=== PATIENT | male | born 1950 | race Caucasian/White ===

== ENCOUNTER 2017-05-31 09:09 | Inpatient (IN) | payer MEDICARE ==
[~2017-05-31 09:09] MED LIST: ALPR.25 PO; ASPI-183 PO; ASPI-516 CHEW; CIAL5TAB PO; CITA20TA4 PO; CLIN150C14 PO; DOXY100T PO; GEMF600T PO; HYDR-3533 PO; LEVEMIR SQ; LIPI20TA PO; LISI-363 PO; LISI-515 PO; METF1000 PO; MUPI2%T TOPICAL; SULF1TAB47 PO
[2017-05-31] MEDS ORDERED: SODIUM CHLOR 0.9% 1000 ML INJ 1,000 ML IV SCH (09:18)
[2017-05-31 09:22] VITALS: BP 98/56; PULSE 86; RESP 18; TEMP 97.9; O2SAT 88; O2SAT 97
[2017-05-31] MEDS ORDERED: ONDANSETRON HCL 4 MG/2 ML VIAL IVP ONE (09:30)
[2017-05-31] MEDS ORDERED: SODIUM CHLORIDE 0.9% FLUSH 10 ML FLUSH IV FLUSH PRN (09:30)
[2017-05-31 09:48] LABS: AUTOMATED NEUTROPHIL # 8.4 TH/MM3 (1.8-7.7); BASOPHIL # 0.1 TH/MM3 (0-0.2); BASOPHIL % 0.8 % (0.0-2.0); EOSINOPHIL # 0.3 TH/MM3 (0-0.4); EOSINOPHIL % 2.4 % (0.0-4.0); HEMOGLOBIN 16.6 GM/DL (13.0-17.0); LYMPHOCYTE # 2.5 TH/MM3 (1.0-4.8); MEAN CORPUSCULAR HEMOGLOBIN 33.5 PG (27.0-34.0); MEAN CORPUSCULAR HGB CONC 33.9 % (32.0-36.0); MEAN PLATELET VOLUME 10.1 FL (7.0-11.0); MONO % 13.3 % (0.0-8.0); MONOCYTE # 1.7 TH/MM3 (0-0.9); NEUT % 64.5 % (16.0-70.0); PLATELET COUNT 217 TH/MM3 (150-450); RED BLOOD COUNT 4.95 MIL/MM3 (4.50-5.90); RED CELL DISTRIBUTION WIDTH 13.4 % (11.6-17.2)
[2017-05-31] MEDS ORDERED: FLEE5TAB PO (10:28)
[2017-05-31 10:31] LABS: ALBUMIN 3.8 GM/DL (3.4-5.0); ALKALINE PHOSPHATASE 69 U/L (45-117); ALT (GPT) 28 U/L (12-78); AST (GOT) 29 U/L (15-37); BICARBONATE 28.4 MEQ/L (21.0-32.0); BLOOD UREA NITROGEN 82 MG/DL (7-18); CALCIUM 11.9 MG/DL (8.5-10.1); CALCIUM-PROTEIN CORRECTED 11.5 MG/DL (8.5-10.1); CHLORIDE 96 MEQ/L (98-107); CREATININE 5.11 MG/DL (0.60-1.30); GLOMERULAR FILTRATION RATE 11 ML/MIN (>89); GLUCOSE,RANDOM 330 MG/DL (74-106); LIPASE 1238 U/L (73-393); SODIUM (NA) 137 MEQ/L (136-145); TOTAL BILIRUBIN ADULT 0.7 MG/DL (0.2-1.0); TOTAL PROTEIN 7.8 GM/DL (6.4-8.2); TROPONIN I LESS THAN 0.02 NG/ML (0.02-0.05)
[2017-05-31] MEDS ORDERED: ALPR1TAB3 PO (11:09)
[2017-05-31] MEDS ORDERED: LISI-515 PO (11:09)
[2017-05-31] MEDS ORDERED: CLON0.1T PO (11:09)
[2017-05-31] MEDS ORDERED: GABA100C4 PO (11:09)
[2017-05-31] MEDS ORDERED: VITA250C3 CHEW (11:09)
[2017-05-31] MEDS ORDERED: ESCI10TA PO (11:09)
[2017-05-31] MEDS ORDERED: ALBI1INJ2 SQ (11:09)
[2017-05-31] MEDS ORDERED: TRAM50TA PO (11:09)
[2017-05-31] MEDS ORDERED: INSU1INJ14 SQ (11:09)
--- NOTE | 2017-05-31 11:15 | RADRPT ---
EXAM DATE/TIME: 05/31/2017 10:21 [facility] COMPARISON: No previous studies available for comparison. EXTERNAL COMPARISON : [facility], CTA Abdomen and pelvis, November 04, 2016also 05/21/16 and 01/15/2016. CT Aorta with r enoff 07/12/2015. CT Abdomen and pelvis with contrast 06/07/2015 INDICATIONS : Nausea and vomiting. MEDICAL HISTORY : Diabetic. HTN. AAA. Colon polyps. SURGICAL HISTORY : Tubal ligation. Right endarterectomy. Hernia repair. Colon resection. ENCOUNTER: Initial ACUITY: 1 week PAIN SCORE: 0/10 LOCATION: Right upper quadrant MEASUREMENTS: LIVER: 17.2 cm length COMMON DUCT: Non-visualized RIGHT KIDNEY: 12.2A x 5.8 x 8.0 cm FINDINGS: LIVER: Much of the liver is obscured by bowel gas. The liver is diffusely echogenic. There is a suggestion o f mitral lobulation to the contour. No gross mass or intrahepatic ductal dilatation observed on these limited images. Hepatopedal flow within the portal vein. COMMON DUCT: No intraluminal mass or stone visualized. GALLBLADDER: Contains no stones, demonstrates no wall thickening or pericholecystic fluid. PANCREAS: The visualized portions are within normal limits. RIGHT KIDNEY: No evidence of hydronephrosis, stone, or mass. CONCLUSION: 1. Study limited by bowel gas. 2. Hepatic steatosis. 3. Questionable cirrhosis. Richard Powell Jr., MD on May 31, 2017 at 11:10 Board Certified Radiologist. This report was verified electronically.
--- NOTE | 2017-05-31 11:41 | PD ---
HPI Chief Complaint: Cardiac Complaint Time Seen by Provider: 09:18 Travel History International Travel<30 days: No Contact w/Intl Traveler<30days: No Traveled to known affect area: No History of Present Illness HPI This is a 67-year-old male who presents to the emergency department with nausea and vomiting, constant severe, associated with generalized weakness with some chest discomfort in the middle of his sternum that started yesterday. He denies any fevers or chills. He says intermittently he has also had some pain in his right upper abdomen. He denies any diarrhea. He has never had symptoms like this before. He went to Dr. Bal office today who called EMS and told him to be brought to the emergency department. The patient denies any alcohol use. PFSH Past Medical History Hx Anticoagulant Therapy: Yes (asa) Depression: Yes Cancer: Yes (COLON) Cardiovascular Problems: Yes High Cholesterol: Yes Diabetes: Yes Patient Takes Glucophage: No Diminished Hearing: No Hypertension: Yes Inguinal Hernia: Yes (WITH REPAIR) Integumentary: Yes (HX OF MRSA WITH MULTIPLE WOUND INFECTIONS) Past Surgical History Abdominal Surgery: Yes (COLECTOMY WITH RESECTION; HERNIA REPAIR) Other Surgery: Yes (right endartectomy) Social History Alcohol Use: Yes (SOCIALLY) Tobacco Use: No Substance Use: No Allergies-Medications (Allergen,Severity, Reaction): Coded Allergies: No Known Allergies (Verified , 04/02/16) Reported Meds & Prescriptions Reported Meds & Active Scripts Active Reported Lisinopril 20 Mg Tab 20 Mg PO DAILY Tanzeum 4-Pack Inj (Albiglutide) 50 Mg Pfpen 50 Mg SQ Q7D Vitamin C (Ascorbic Acid) 250 Mg Chew 500 Mg CHEW DAILY Tramadol (Tramadol HCl) 50 Mg Tab 50 Mg PO Q6H PRN Tresiba Flextouch Pen Inj (Insulin Degludec Inj) 300 unit/3 ML Pen 80 Units SQ DAILY Gabapentin 100 Mg Cap 100 Mg PO BID Escitalopram (Escitalopram Oxalate) 10 Mg Tab 10 Mg PO DAILY Clonidine (Clonidine HCl) 0.1 Mg Tab 0.1 Mg PO PRN Alprazolam 1 Mg Tab 1 Mg PO BID PRN Bisacodyl EC (Bisacodyl) 5 Mg Tabec 5 Mg PO DAILY PRN Aspirin 81 Mg Chew 81 Mg CHEW DAILY Aspirin 325 Mg Tab 81 Mg PO DAILY Gemfibrozil 600 Mg Tab 600 Mg PO DAILY Take 30 minutes prior to breakfast and dinner. Metformin (Metformin HCl) 1,000 Mg Tab 1,000 Mg PO BIDPC With meals Lipitor (Atorvastatin Calcium) 20 Mg Tab 80 Mg PO HS Review of Systems Except as stated in HPI: all other systems reviewed are Neg Physical Exam Narrative GENERAL:Well appearing, no acute distress SKIN: Dry with skin tenting HEAD: Atraumatic. Normocephalic. EYES: Pupils equal and round. No injection or drainage. ENT: Dry mucous membranes. NECK: Trachea midline. CARDIOVASCULAR: Regular rate and rhythm. No murmur appreciated. RESPIRATORY: Clear to auscultation. Breath sounds equal bilaterally. GASTROINTESTINAL: Abdomen soft, mildly tender to palpation in the right upper quadrant with no rebound or guarding. MUSCULOSKELETAL: No obvious deformities. Moving all extremities. NEURO: No dysarthria or aphasia. No upper or lower extremity drift. No upper extremity ataxia. Visual baron intact. PSYCHIATRIC: Appropriate mood and affect; insight and judgment normal. Data Data Last Documented VS Vital Signs Date Time Temp Pulse Resp B/P (MAP) Pulse Ox O2 Delivery O2 Flow Rate FiO2 05/31/17 09:32 98 Nasal Cannula 3.00 05/31/17 09:24 86 05/31/17 09:22 97.9 18 98/56 (70) Orders Orders Complete Blood Count With Diff (05/31/17 09:18) Comprehensive Metabolic Panel (05/31/17 09:18) Lipase (05/31/17 09:18) Urinalysis - C+S If Indicated (05/31/17 09:18) Iv Access Insert/Monitor (05/31/17 09:18) Ecg Monitoring (05/31/17 09:18) Oximetry (05/31/17 09:18) Ondansetron Inj (Zofran Inj) (05/31/17 09:30) Sodium Chlor 0.9% 1000 Ml Inj (Ns 1000 M (05/31/17 09:18) Sodium Chloride 0.9% Flush (Ns Flush) (05/31/17 09:30) Troponin I (05/31/17 09:18) Us Abdomen Gallbladder (05/31/17 ) Lactic Acid (05/31/17 11:25) Ct Abd/Pel W/O Iv Contrast (05/31/17 ) Electrocardiogram (05/31/17 09:15) Chest, Single Ap (05/31/17 ) Labs Laboratory Tests Test 05/31/17 09:20 05/31/17 11:30 White Blood Count 13.0 TH/MM3 Red Blood Count 4.95 MIL/MM3 Hemoglobin 16.6 GM/DL Hematocrit 49.0 % Mean Corpuscular Volume 99.0 FL Mean Corpuscular Hemoglobin 33.5 PG Mean Corpuscular Hemoglobin Concent 33.9 % Red Cell Distribution Width 13.4 % Platelet Count 217 TH/MM3 Mean Platelet Volume 10.1 FL Neutrophils (%) (Auto) 64.5 % Lymphocytes (%) (Auto) 19.0 % Monocytes (%) (Auto) 13.3 % Eosinophils (%) (Auto) 2.4 % Basophils (%) (Auto) 0.8 % Neutrophils # (Auto) 8.4 TH/MM3 Lymphocytes # (Auto) 2.5 TH/MM3 Monocytes # (Auto) 1.7 TH/MM3 Eosinophils # (Auto) 0.3 TH/MM3 Basophils # (Auto) 0.1 TH/MM3 CBC Comment DIFF FINAL Differential Comment Blood Urea Nitrogen 82 MG/DL Creatinine 5.11 MG/DL Random Glucose 330 MG/DL Total Protein 7.8 GM/DL Albumin 3.8 GM/DL Calcium Level 11.9 MG/DL Alkaline Phosphatase 69 U/L Aspartate Amino Transf (AST/SGOT) 29 U/L Alanine Aminotransferase (ALT/SGPT) 28 U/L Total Bilirubin 0.7 MG/DL Sodium Level 137 MEQ/L Potassium Level 3.8 MEQ/L Chloride Level 96 MEQ/L Carbon Dioxide Level 28.4 MEQ/L Anion Gap 13 MEQ/L Estimat Glomerular Filtration Rate 11 ML/MIN Protein Corrected Calcium 11.5 MG/DL Troponin I LESS THAN 0.02 NG/ML Lipase 1238 U/L MDM Medical Decision Making Medical Screen Exam Complete: Yes Emergency Medical Condition: Yes Interpretation(s) Afebrile, no tachycardia, mild hypotension, hypoxia on room air Leukocytosis of 13 Renal insufficiency Normal potassium Hypercalcemia Lipase is 1238 US: no acute process Differential Diagnosis Gastritis, pancreatitis, cholelithiasis, cholecystitis, myocardial infarction, dehydration Narrative Course This is a 67-year-old male who presents to the emergency department with vomiting and generalized malaise. He was placed on a monitor and an IV was established. Labs are obtained which demonstrate acute renal failure, lipase of 1238 consistent with acute pancreatitis and marked hypercalcemia. Patient has a mild leukocytosis. He is afebrile and on exam looks nontoxic. I doubt this is necrotizing pancreatitis but I did add a lactic acid and a CT abdomen pelvis. Patient was started on IV hydration and antiemetics. Ultrasound of the gallbladder was unremarkable. Patient requires admission. Hypercalcemia may be the etiology of his acute pancreatitis. Diagnosis Primary Impression: Acute pancreatitis Qualified Codes: K85.80 - Other acute pancreatitis without necrosis or infection Additional Impression: Hypercalcemia Admitting Information Admitting Physician Requests: Admit Sara Yeboah MD May 31, 2017 11:41
[2017-05-31 11:43] LABS: BILIRUBIN, URINE NEG (NEG); BLOOD, URINE NEG (NEG); GLUCOSE,URINE 1000 mg/dL (NEG); HYALINE CAST, URINE 14 /lpf (RARE); KETONE, URINE NEG (NEG); MUCUS URINE FEW /lpf (OCC); NITRITE,URINE NEG (NEG); PH, URINE 5.5 (5.0-8.5); SQUAMOUS EPITHELIAL CELL URINE <1 /hpf (0-5); URINE COLOR YELLOW (YELLW/STRAW); URINE LEUKOCYTE ESTERASE NEG (NEG)
[2017-05-31] MEDS ORDERED: ONDANSETRON HCL 4 MG/2 ML VIAL IV PUSH PRN (11:45)
[2017-05-31 12:00] VITALS: BP 94/69; PULSE 93; RESP 20; O2SAT 97
--- NOTE | 2017-05-31 12:02 | RADRPT ---
EXAM DATE/TIME: 05/31/2017 11:42 [facility] COMPARISON: No previous studies available for comparison. INDICATIONS : Abdominal pain, vomiting ORAL CONTRAST: No oral contrast ingested. RADIATION DOSE: 16.33 CTDIvol (mGy) MEDICAL HISTORY : Cardiovascular disease. Hypertension. Carcinoma, colon.Diabetes SURGICAL HISTORY : Inguinal hernia repair. Colon resection. ENCOUNTER: Initial ACUITY: 2 weeks PAIN SCALE: 5/10 LOCATION: Abdomen TECHNIQUE: Volumetric scanning of the abdomen and pelvis was performed. Using automated exposure control and ad justment of the mA and/or kV according to patient size, radiation dose was kept as low as reasonably achievable to obtain optimal diagnostic quality images. DICOM format image data is available electro nically for review and comparison. FINDINGS: LOWER LUNGS: Interstitial prominence involving the inferior portion of the lingula. No intra-alveolar infiltrates or effusions. Pronounced coronary artery atherosclerotic calcifications. LIVER: The liver is diffusely low in attenuation. No mass or ductal dilatation. No lobulation to the contour observed. The gallbladder is unremarkable. SPLEEN: Normal size without lesion. PANCREAS: Within normal limits. KIDNEYS: Normal in size and shape. There is no mass, stone, or hydronephrosis. ADRENAL GLANDS: Within normal limits. VASCULAR: Diffuse calcified atherosclerotic plaque throughout the aorta and inflow vessels. Fusiform dilatation of the infrarenal aorta reaching a maximum diameter of 4.9 x 4.4 cm. BOWEL/MESENTERY: The stomach, small bowel, and colon demonstrate no acute abnormality. There is no free intraperitone al air or fluid. A few scattered diverticuli without acute inflammation. ABDOMINAL WALL: There is thickening and possible mesh involving the intra-abdominal wall above the level of the umbil icus. No recurrent hernia observed. RETROPERITONEUM: There is no lymphadenopathy. BLADDER: No wall thickening or mass. REPRODUCTIVE: Within normal limits. INGUINAL: There is no lymphadenopathy or hernia. MUSCULOSKELETAL: Within normal limits for patient age. CONCLUSION: 1. No acute abnormality to explain the patient's pain. 2. 4.9 x 4.4 cm AAA. 3. Colonic diverticulosis. 4. Hepatic steatosis without appreciable cirrhosis. Richard Powell Jr., MD on May 31, 2017 at 11:54 Board Certified Radiologist. This report was verified electronically.
--- NOTE | 2017-05-31 12:32 | RADRPT ---
EXAM DATE/TIME: 05/31/2017 11:54 [facility] COMPARISON: No previous studies available for comparison. INDICATIONS : Vomiting, constipation MEDICAL HISTORY : None. SURGICAL HISTORY : None. ENCOUNTER: Initial ACUITY: 3 weeks PAIN SCORE: 0/10 LOCATION: Bilateral chest FINDINGS: A single view of the chest demonstrates the lungs to be symmetrically aerated without evidence of mas s, infiltrate or effusion. The cardiomediastinal contours are unremarkable. Osseous structures are intact. CONCLUSION: Normal examination. Richard Powell Jr., MD on May 31, 2017 at 12:26 Board Certified Radiologist. This report was verified electronically.
[2017-05-31 13:49] VITALS: BP 137/67; PULSE 86; RESP 18; O2SAT 94
[2017-05-31] MEDS: SODIUM CHLOR 0.9% 1000 ML INJ 1,000 ML IV SCH ×3 (13:49→22:45)
--- NOTE | 2017-05-31 17:24 | HHI.HP ---
HPI Service [facility] Hospitalists Primary Care Physician Landen Bal MD, PhD Admission Diagnosis rakesh/pancreatitis Chief Complaint: n/v Travel History International Travel<30 Days: No Contact w/Intl Traveler <30 Da: No Traveled to Known Affected Are: No History of Present Illness Pt is dm2, htn, hypercalcemia, who presents with n/v poor po intake for past 3 weeks. He and say persistent nausea and unable to hold down any food. some upper abdomen lower cp but no radiation to back. no diarrhia. has had some chills but no fever. No new medications. Brought to ED and found to have rakesh and possible pancreatitis. Review of Systems Other n/v poor po intake Past Family Social History Past Medical History dm2 hypercalcemia BRENDA. AAA endarterectomy right femoral. right adrenal mass erectile dysfunction hyperlipidemia depression vit d def. colonic polyps fatty liver gerd colon ca colon resection right hemicolectomy umbilical hernia Reported Medications Lisinopril 20 Mg Tab 20 Mg PO DAILY Tanzeum 4-Pack Inj (Albiglutide) 50 Mg Pfpen 50 Mg SQ Q7D Vitamin C (Ascorbic Acid) 250 Mg Chew 500 Mg CHEW DAILY Tramadol (Tramadol HCl) 50 Mg Tab 50 Mg PO Q6H PRN Tresiba Flextouch Pen Inj (Insulin Degludec Inj) 300 unit/3 ML Pen 80 Units SQ DAILY Gabapentin 100 Mg Cap 100 Mg PO BID Escitalopram (Escitalopram Oxalate) 10 Mg Tab 10 Mg PO DAILY Clonidine (Clonidine HCl) 0.1 Mg Tab 0.1 Mg PO PRN Alprazolam 1 Mg Tab 1 Mg PO BID PRN Bisacodyl EC (Bisacodyl) 5 Mg Tabec 5 Mg PO DAILY PRN Aspirin 81 Mg Chew 81 Mg CHEW DAILY Aspirin 325 Mg Tab 81 Mg PO DAILY Gemfibrozil 600 Mg Tab 600 Mg PO DAILY Take 30 minutes prior to breakfast and dinner. Metformin (Metformin HCl) 1,000 Mg Tab 1,000 Mg PO BIDPC With meals Lipitor (Atorvastatin Calcium) 20 Mg Tab 80 Mg PO HS Allergies: Coded Allergies: No Known Allergies (Verified Allergy, Unknown, 05/31/17) Family History nc Social History no etoh/tob Physical Exam Vital Signs heart reg lung cta abd s/nt/nabs ext no edema mouth dry mucosa Vital Signs Date Time Temp Pulse Resp B/P (MAP) Pulse Ox O2 Delivery O2 Flow Rate FiO2 05/31/17 15:46 (90) 3.00 05/31/17 13:49 86 18 137/67 (90) 94 Room Air 05/31/17 12:00 93 20 94/69 (77) 97 Room Air 05/31/17 09:32 98 Nasal Cannula 3.00 05/31/17 09:24 86 05/31/17 09:22 97.9 86 18 98/56 (70) 88 Room Air 05/31/17 09:22 (70) Room Air Laboratory Laboratory Tests Test 05/31/17 09:20 05/31/17 11:30 05/31/17 12:15 White Blood Count 13.0 Red Blood Count 4.95 Hemoglobin 16.6 Hematocrit 49.0 Mean Corpuscular Volume 99.0 Mean Corpuscular Hemoglobin 33.5 Mean Corpuscular Hemoglobin Concent 33.9 Red Cell Distribution Width 13.4 Platelet Count 217 Mean Platelet Volume 10.1 Neutrophils (%) (Auto) 64.5 Lymphocytes (%) (Auto) 19.0 Monocytes (%) (Auto) 13.3 Eosinophils (%) (Auto) 2.4 Basophils (%) (Auto) 0.8 Neutrophils # (Auto) 8.4 Lymphocytes # (Auto) 2.5 Monocytes # (Auto) 1.7 Eosinophils # (Auto) 0.3 Basophils # (Auto) 0.1 CBC Comment DIFF FINAL Differential Comment Blood Urea Nitrogen 82 Creatinine 5.11 Random Glucose 330 Total Protein 7.8 Albumin 3.8 Calcium Level 11.9 Alkaline Phosphatase 69 Aspartate Amino Transf (AST/SGOT) 29 Alanine Aminotransferase (ALT/SGPT) 28 Total Bilirubin 0.7 Sodium Level 137 Potassium Level 3.8 Chloride Level 96 Carbon Dioxide Level 28.4 Anion Gap 13 Estimat Glomerular Filtration Rate 11 Protein Corrected Calcium 11.5 Troponin I LESS THAN 0.02 Lipase 1238 Urine Color YELLOW Urine Turbidity CLEAR Urine pH 5.5 Urine Specific [place] 1.007 Urine Protein TRACE Urine Glucose (UA) 1000 Urine Ketones NEG Urine Occult Blood NEG Urine Nitrite NEG Urine Bilirubin NEG Urine Urobilinogen LESS THAN 2.0 Urine Leukocyte Esterase NEG Urine RBC 1 Urine WBC 3 Urine Squamous Epithelial Cells <1 Urine Hyaline Casts 14 Urine Mucus FEW Microscopic Urinalysis Comment CULT NOT INDICATED Lactic Acid Level 2.2 Result Diagram: 05/31/1720 05/31/1720 Caprini VTE Risk Assessment Caprini VTE Risk Assessment: Mod/High Risk (score >= 2) Caprini Risk Assessment Model Point Value = 1 Point Value = 2 Point Value = 3 Point Value = 5 Age 41-60 Minor surgery BMI > 25 kg/m2 Swollen legs Varicose veins or History of unexplained or recurrent spontaneous Oral contraceptives or hormone replacement Sepsis (< 1 month) Serious lung disease, including pneumonia (< 1 month) Abnormal pulmonary function Acute myocardial infarction Congestive heart failure (< 1 month) History of inflammatory bowel disease Medical patient at bed rest Age 61-74 Arthroscopic surgery Major open surgery (> 45 min) Laparoscopic surgery (> 45 min) Malignancy Confined to bed (> 72 hours) Immobilizing plaster cast Central venous access Age >= 75 History of VTE Family history of VTE Factor V Leiden Prothrombin [id number] Lupus anticoagulant Anticardiolipin antibodies Elevated serum homocysteine Heparin-induced thrombocytopenia Other congenital or acquired thrombophilia Stroke (< 1 month) Elective arthroplasty Hip, pelvis, or leg fracture Acute spinal cord injury (< 1 month) Prophylaxis Regimen Total Risk Factor Score Risk Level Prophylaxis Regimen 0-1 Low Early ambulation 2 Moderate Order ONE of the following: *Sequential Compression Device (SCD) *Heparin 5000 units SQ BID 3-4 Higher Order ONE of the following medications: *Heparin 5000 units SQ TID *Enoxaparin/Lovenox 40 mg SQ daily (WT < 150 kg, CrCl > 30 mL/min) *Enoxaparin/Lovenox 30 mg SQ daily (WT < 150 kg, CrCl > 10-29 mL/min) *Enoxaparin/Lovenox 30 mg SQ BID (WT < 150 kg, CrCl > 30 mL/min) AND/OR *Sequential Compression Device (SCD) 5 or more Highest Order ONE of the following medications: *Heparin 5000 units SQ TID (Preferred with Epidurals) *Enoxaparin/Lovenox 40 mg SQ daily (WT < 150 kg, CrCl > 30 mL/min) *Enoxaparin/Lovenox 30 mg SQ daily (WT < 150 kg, CrCl > 10-29 mL/min) *Enoxaparin/Lovenox 30 mg SQ BID (WT < 150 kg, CrCl > 30 mL/min) AND *Sequential Compression Device (SCD) Assessment and Plan Problem List: (1) RAKESH (acute kidney injury) ICD Codes: N17.9 - Acute kidney failure, unspecified Status: Acute Plan: 1. RAKESH. probably related to n/v and dehydration 2. elevated lipase. possible acute pancreatitis but no inlammatory change on CT ?related to hypercalcemia. 3. hypercalcemia. unclear etiology. pt sees endocrine outpt. spep and pth were unremarkable. 4. dm 2 cont normal saline and recheck ca,bun,cr,lipase in AM lab w/up for hypercalcemia ordered. will discuss with pcp hold chavo and glucophage npo tonight. ssi. hold scheduled dm meds dvt prophylaxis further w/up as needed based on repeat labs in AM denies cp on my eval. echo,repeat ekg and ce. tele. (2) Acute pancreatitis ICD Codes: K85.90 - Acute pancreatitis without necrosis or infection, unspecified Status: Acute (3) Hypercalcemia ICD Codes: E83.52 - Hypercalcemia Status: Acute (4) HTN (hypertension) ICD Codes: I10 - Essential (primary) hypertension Status: Chronic (5) AAA (abdominal aortic aneurysm) ICD Codes: I71.4 - Abdominal aortic aneurysm, without rupture Status: Chronic Physician Certification 2 Midnight Certification Type: Admission for Inpatient Services Order for Inpatient Services 3The services are ordered in accordance with Medicare regulations or non- Medicare payer requirements, as applicable. In the case of services not specified as inpatient-only, they are appropriately provided as inpatient services in accordance with the 2-midnight benchmark. Estimated LOS (days): 3 3 days is the estimated time the patient will need to remain in the hospital, assuming treatment plan goals are met and no additional complications. Post-Hospital Plan: Home Problem Qualifiers (1) Acute pancreatitis: Qualified Codes: K85.80 - Other acute pancreatitis without necrosis or infection Gibran Rice MD May 31, 2017 17:24
[2017-05-31] MEDS: PANTOPRAZOLE SODIUM 40 MG VIAL IV PUSH SCH (18:50)
[2017-05-31] MEDS: INSULIN ASPART SUPPLEMENTAL SCALE SQ SCH ×2 (19:15→20:23)
--- NOTE | 2017-05-31 19:50 | EKG ---
Date Performed: 05/31/2017 Time Performed: 09:15:25 PTAGE: 67 years EKG: Sinus rhythm WITH OCCASIONAL SUPRAVENTRICULAR PREMATURE COMPLEXES INTRAVENTRICULAR CONDUCTION DELAY LEFT VENTRICU LAR HYPERTROPHY AND ST-T CHANGE POSSIBLE SEPTAL MYOCARDIAL INFARCTION LATERAL MYOCARDIAL INFARCTION * ACUTE PA Compared to PREVIOUS TRACING , there is concern for anterolateral ST elevation consistent with a poss ible acute PA Clinical correlation is recommended PREVIOUS TRACIN11/22/2009 00.07 DOCTOR: Saundra Clayton Interpretating Date/Time 05/31/2017 19:48:54
[2017-05-31] MEDS: GABAPENTIN 100 MG CAP PO SCH (20:22)
[2017-05-31 20:45] VITALS: BP 84/60; PULSE 80; RESP 20; TEMP 97.7; O2SAT 94
[2017-06-01 00:29] VITALS: BP 125/83; PULSE 79; RESP 20; TEMP 97.6; O2SAT 94
[2017-06-01 04:00] VITALS: BP 144/81; PULSE 80; RESP 19; TEMP 97.6; O2SAT 96
[2017-06-01 08:28] LABS: AUTOMATED NEUTROPHIL # 6.7 TH/MM3 (1.8-7.7); BASOPHIL # 0.1 TH/MM3 (0-0.2); BASOPHIL % 0.7 % (0.0-2.0); EOSINOPHIL # 0.5 TH/MM3 (0-0.4); EOSINOPHIL % 4.8 % (0.0-4.0); HEMATOCRIT 45.5 % (39.0-51.0); HEMOGLOBIN 15.6 GM/DL (13.0-17.0); LYMPH % 21.8 % (9.0-44.0); LYMPHOCYTE # 2.4 TH/MM3 (1.0-4.8); MEAN CELL VOLUME 99.2 FL (80.0-100.0); MEAN CORPUSCULAR HEMOGLOBIN 34.1 PG (27.0-34.0); MEAN CORPUSCULAR HGB CONC 34.3 % (32.0-36.0); MEAN PLATELET VOLUME 10.4 FL (7.0-11.0); MONO % 12.1 % (0.0-8.0); MONOCYTE # 1.3 TH/MM3 (0-0.9); NEUT % 60.6 % (16.0-70.0); PLATELET COUNT 201 TH/MM3 (150-450); RED BLOOD COUNT 4.59 MIL/MM3 (4.50-5.90); RED CELL DISTRIBUTION WIDTH 13.4 % (11.6-17.2); WHITE BLOOD COUNT 11.1 TH/MM3 (4.0-11.0)
[2017-06-01 08:36] VITALS: BP 168/86; PULSE 83; RESP 20; TEMP 97.5; O2SAT 95
[2017-06-01] MEDS: ASPIRIN 81 MG CHEW TAB CHEW SCH (08:37)
[2017-06-01] MEDS: GABAPENTIN 100 MG CAP PO SCH ×2 (08:38→20:47)
[2017-06-01] MEDS: ESCITALOPRAM OXALATE 10 MG TAB PO SCH (08:38)
[2017-06-01] MEDS: INSULIN ASPART SUPPLEMENTAL SCALE SQ SCH ×4 (08:39→20:49)
[2017-06-01 08:58] LABS: BICARBONATE 27.2 MEQ/L (21.0-32.0); CALCIUM 11.2 MG/DL (8.5-10.1); CREATININE 3.64 MG/DL (0.60-1.30)
[2017-06-01 09:04] LABS: CHOLESTEROL/ HDL RATIO 6.38 RATIO; HDL CHOLESTEROL 30.4 MG/DL (40.0-60.0); TROPONIN I 0.03 NG/ML (0.02-0.05)
[2017-06-01] MEDS ORDERED: INFLUENZA VIRUS VACCINE (QUADRIVALENT) 0.5 ML SYR IM ONE (10:00)
[2017-06-01] MEDS: SODIUM CHLOR 0.9% 1000 ML INJ 1,000 ML IV SCH ×2 (10:40→22:35)
[2017-06-01] MEDS ORDERED: DEXTROSE 50% IN WATER 50 ML VIAL(D50) IV PUSH PRN (11:15)
[2017-06-01] MEDS ORDERED: GLUCAGON 1 MG/ML VIAL OTHER PRN (11:15)
--- NOTE | 2017-06-01 11:58 | HHI.PR ---
Subjective Remarks feels better. no abdomen or cp. no vomiting Objective Vitals heart reg lung cta abd s/nt ext no edema Vital Signs Date Time Temp Pulse Resp B/P (MAP) Pulse Ox O2 Delivery O2 Flow Rate FiO2 06/01/17 08:36 97.5 83 20 168/86 (113) 95 06/01/17 04:00 97.6 80 19 144/81 (102) 96 06/01/17 00:29 97.6 79 20 125/83 (97) 94 05/31/17 20:45 97.7 80 20 84/60 (68) 94 05/31/17 15:46 (90) 3.00 05/31/17 13:49 86 18 137/67 (90) 94 Room Air 05/31/17 12:00 93 20 94/69 (77) 97 Room Air 06/01/17 06/01/17 06/02/17 15:00 23:00 07:00 Intake Total 1000 ml Balance 1000 ml Intake IV Total 1000 ml Result Diagram: 06/01/17 0756 06/01/17 0756 A/P Problem List: (1) RAKESH (acute kidney injury) ICD Codes: N17.9 - Acute kidney failure, unspecified Status: Acute Plan: 1. RAKESH. probably related to n/v and dehydration..improving 2. elevated lipase. possible acute pancreatitis but no inlammatory change on CT ?related to hypercalcemia. 3. hypercalcemia. unclear etiology. pt sees endocrine outpt. spep and pth were unremarkable. exclude underlying malignancy 4. dm 2 cont normal saline lab w/up for hypercalcemia ordered. hold chavo and glucophage clears and advance as tolerated ssi. basal insulin....hold scheduled home dm meds dvt prophylaxis f/u echo. (2) Acute pancreatitis ICD Codes: K85.90 - Acute pancreatitis without necrosis or infection, unspecified Status: Acute (3) Hypercalcemia ICD Codes: E83.52 - Hypercalcemia Status: Acute (4) HTN (hypertension) ICD Codes: I10 - Essential (primary) hypertension Status: Chronic (5) AAA (abdominal aortic aneurysm) ICD Codes: I71.4 - Abdominal aortic aneurysm, without rupture Status: Chronic Problem Qualifiers (1) Acute pancreatitis: Qualified Codes: K85.80 - Other acute pancreatitis without necrosis or infection Gibran Rice MD Jun 01, 2017 11:57
[2017-06-01] MEDS ORDERED: POTASSIUM CHLORIDE 20 MEQ CONTROLLED RELEASE TAB PO ONE (12:00)
[2017-06-01 12:01] VITALS: BP 140/65; PULSE 79; RESP 20; TEMP 97.8; O2SAT 97
[2017-06-01 16:57] VITALS: BP 131/62; PULSE 78; RESP 20; TEMP 97.6; O2SAT 96
--- NOTE | 2017-06-01 17:25 | EKG ---
Date Performed: 06/01/2017 Time Performed: 05:42:38 PTAGE: 67 years EKG: Sinus rhythm with borderline 1st degree A-V block Left axis deviation IV conduction defect Extensive ST elevation suggests pericarditis Lateral T wave changes are nonspecific Abnormal ECG PREVIOUS TRACING : 05/31/2017 09.15 DOCTOR: Mehreen Dodson Interpretating Date/Time 06/01/2017 17:21:24
--- NOTE | 2017-06-01 17:34 | RADRPT ---
EXAM DATE/TIME: 06/01/2017 16:07 [facility] COMPARISON: No previous studies available for comparison. INDICATIONS : Short of breath, neoplasm. RADIATION DOSE: 18.69 CTDIvol (mGy) MEDICAL HISTORY : Diabetes mellitus type 2. Carcinoma, colon. Hypertension. Cardiac. SURGICAL HISTORY : None. ENCOUNTER: Initial ACUITY: 1 day PAIN SCALE: 3/10 LOCATION: Bilateral chest TECHNIQUE: Volumetric scanning of the chest was performed. Using automated exposure control and adjustment of t he mA and/or kV according to patient size, radiation dose was kept as low as reasonably achievable to obtain optimal diagnostic quality images. DICOM format image data is available electronically for r eview and comparison. Follow-up recommendations for detected pulmonary nodules are based at a minimum on nodule size and pa tient risk factors according to Fleischner Society Guidelines. FINDINGS: Mild dependent atelectasis in the lungs. Mild emphysema and scarring. No consolidation. No pleural or pericardial effusion. Severe coronary artery calcifications. No acute bony abnormality. No acute fin dings in the upper abdomen. CONCLUSION: 1. No acute findings. Mild emphysema. Dense coronary calcifications. No adenopathy. No effusion. Kevin Ochoa MD on June 01, 2017 at 17:26 Board Certified Radiologist. This report was verified electronically.
[2017-06-01] MEDS: PANTOPRAZOLE SODIUM 40 MG VIAL IV PUSH SCH (18:10)
--- NOTE | 2017-06-01 18:30 | ECHRPT ---
Indication: MURMUR CONCLUSIONS The left ventricular systolic function is normal with an estimated ejection fraction in the range of 60-65%. Moderate concentric left ventricular hypertrophy. Doppler parameters are consistent with impaired left ventricular relaxtion (grade 1 diastolic dysfun ction). [id number] mitral valve regurgitation. Severe aortic valve stenosis (peak 60, mean 32, RADHA 0.7) There is trace tricuspid valve regurgitation. BP: 137 / 67 HR: 93 Rhythm: Sinus MEASUREMENTS (Male / Female) Normal Values Technical Quality:Fair 2D ECHO LV Diastolic Diameter PLAX 4.3 cm 4.2 - 5.9 / 3.9 - 5.3 cm LV Systolic Diameter PLAX 2.6 cm IVS Diastolic Thickness 1.7 cm 0.6 - 1.0 / 0.6 - 0.9 cm LVPW Diastolic Thickness 1.7 cm 0.6 - 1.0 / 0.6 - 0.9 cm LV Relative Wall Thickness 0.8 RV Internal Dim ED PLAX 3.2 cm LVOT Diameter 2.0 cm Aortic Root Diameter 3.3 cm LA Systolic Diameter LX 3.7 cm 3.0 - 4.0 / 2.7 - 3.8 cm DOPPLER AV Peak Velocity 385.0 cm/s AV Peak Gradient 59.3 mmHg AV Mean Gradient 32.0 mmHg AV Velocity Time Integral 80.9 cm LVOT Peak Velocity 85.0 cm/s LVOT Peak Gradient 2.9 mmHg LVOT Velocity Time Integral 14.3 cm AV Area Cont Eq vti 0.6 cm AV Area Cont Eq pk 0.7 cm Mitral E Point Velocity 90.8 cm/s Mitral A Point Velocity 120.0 cm/s Mitral E to A Ratio 0.8 LV E' Lateral Velocity 7.1 cm/s Mitral E to LV E' Lateral Ratio 12.8 LV E' Septal Velocity 4.2 cm/s Mitral E to LV E' Septal Ratio 21.7 TR Peak Velocity 243.0 cm/s TR Peak Gradient 23.6 mmHg Right Atrial Pressure 10.0 mmHg Pulmonary Artery Systolic Pressu 33.6 mmHg Right Ventricular Systolic Press 33.6 mmHg PV Peak Velocity 82.0 cm/s PV Peak Gradient 2.7 mmHg FINDINGS LEFT VENTRICLE Normal left ventricular size. Moderate concentric left ventricular hypertrophy. The left ventricular systolic function is normal with an estimated ejection fraction in the range of 60-65%. No regional wall motion abnormalities are present. Doppler parameters are consistent with impaired left ventricular relaxtion (grade 1 diastolic dysfun ction). RIGHT VENTRICLE Normal right ventricular size and systolic function. LEFT ATRIUM The left atrial size is mildly dilated. RIGHT ATRIUM The right atrial size is mildly dilated. ATRIAL SEPTUM Normal atrial septal thickness. AORTA The aortic root and proximal ascending aorta are not well visualized. MITRAL VALVE Structurally normal mitral valve. Mild mitral annular calcification. Bivff-bf-[id number] mitral valve regurgitation. No mitral valve stenosis. AORTIC VALVE Diffuse calcification of the aortic valve. No aortic valve regurgitation. Severe aortic valve stenosis (peak 60, mean 32, RADHA 0.7) TRICUSPID VALVE Structurally normal tricuspid valve. There is trace tricuspid valve regurgitation. The estimated pulmonary arterial pressure is 33.6 mmHg. PULMONARY VALVE No pulmonary valve regurgitation or stenosis. VESSELS The inferior vena cava is normal in size. Leo Aranda DO (Electronically Signed) Final Date:01 June 2017 18:29
[2017-06-01 20:40] VITALS: BP 148/74; PULSE 73; RESP 17; TEMP 97.7; O2SAT 96
[2017-06-01] MEDS: ATORVASTATIN 80 MG TAB PO SCH (20:47)
[2017-06-01] MEDS: INSULIN DETEMIR 100 UNITS/ML VIAL SQ SCH (20:49)
[2017-06-02] VITALS: BP 140/75; PULSE 67; RESP 18; TEMP 98; O2SAT 97
[2017-06-02 03:30] VITALS: BP 143/83; PULSE 69; RESP 17; TEMP 97.8; O2SAT 97
[2017-06-02] MEDS: INSULIN ASPART SUPPLEMENTAL SCALE SQ SCH ×4 (08:00→22:05)
[2017-06-02 08:35] LABS: BICARBONATE 27.2 MEQ/L (21.0-32.0); CALCIUM 9.7 MG/DL (8.5-10.1); CREATININE 2.73 MG/DL (0.60-1.30); FREE T4 1.04 NG/DL (0.76-1.46)
[2017-06-02] MEDS: INSULIN DETEMIR 100 UNITS/ML VIAL SQ SCH ×2 (08:44→22:05)
[2017-06-02] MEDS: ESCITALOPRAM OXALATE 10 MG TAB PO SCH (08:45)
[2017-06-02] MEDS: ASPIRIN 81 MG CHEW TAB CHEW SCH (08:45)
[2017-06-02] MEDS: GABAPENTIN 100 MG CAP PO SCH ×2 (08:45→20:32)
[2017-06-02] MEDS: GEMFIBROZIL 600 MG TAB PO SCH (08:45)
[2017-06-02 09:02] VITALS: BP 154/78; PULSE 76; RESP 20; TEMP 98.4; O2SAT 96
[2017-06-02] MEDS ORDERED: POTASSIUM CHLORIDE 20 MEQ CONTROLLED RELEASE TAB PO ONE (10:00)
[2017-06-02] MEDS: SODIUM CHLOR 0.9% 1000 ML INJ 1,000 ML IV SCH (10:30)
--- NOTE | 2017-06-02 11:39 | HHI.PR ---
Subjective Remarks doing much better lizet liquids Objective Vitals heart reg. homero rusb lung cta abd /snt ext no edema Vital Signs Date Time Temp Pulse Resp B/P (MAP) Pulse Ox O2 Delivery O2 Flow Rate FiO2 06/02/17 09:02 98.4 76 20 154/78 (103) 96 06/02/17 03:30 97.8 69 17 143/83 (103) 97 06/02/17 00:00 98.0 67 18 140/75 (96) 97 06/01/17 20:40 97.7 73 17 148/74 (98) 96 06/01/17 16:57 97.6 78 20 131/62 (85) 96 06/01/17 12:01 97.8 79 20 140/65 (90) 97 Result Diagram: 06/01/17 0756 06/02/17 0718 A/P Problem List: (1) RAKESH (acute kidney injury) ICD Codes: N17.9 - Acute kidney failure, unspecified Status: Acute Plan: 1. RAKESH. probably related to n/v and dehydration..improving 2. elevated lipase. possible acute pancreatitis but no inlammatory change on CT ?related to hypercalcemia. 3. hypercalcemia. unclear etiology. pt sees endocrine outpt. spep and pth were unremarkable. exclude underlying malignancy 4. dm 2 5. severe AVS cont normal saline lab w/up for hypercalcemia ordered. pth suppressed. pth related peptide pending hold chavo and glucophage until rakesh resolves advance to diabetic diet ssi. basal insulin....hold scheduled home dm meds dvt prophylaxis possible d/c home tomorrow. (2) Aortic valve stenosis, severe ICD Codes: I35.0 - Nonrheumatic aortic (valve) stenosis Status: Acute (3) Acute pancreatitis ICD Codes: K85.90 - Acute pancreatitis without necrosis or infection, unspecified Status: Acute (4) Hypercalcemia ICD Codes: E83.52 - Hypercalcemia Status: Acute (5) HTN (hypertension) ICD Codes: I10 - Essential (primary) hypertension Status: Chronic (6) AAA (abdominal aortic aneurysm) ICD Codes: I71.4 - Abdominal aortic aneurysm, without rupture Status: Chronic Problem Qualifiers (1) Acute pancreatitis: Qualified Codes: K85.80 - Other acute pancreatitis without necrosis or infection Gibran Rice MD Jun 02, 2017 11:39
[2017-06-02 12:17] VITALS: BP 123/73; PULSE 77; RESP 20; TEMP 98.4; O2SAT 95
[2017-06-02 16:46] VITALS: BP 129/67; PULSE 68; RESP 20; TEMP 98.6; O2SAT 96
[2017-06-02] MEDS: PANTOPRAZOLE SODIUM 40 MG VIAL IV PUSH SCH (17:08)
[2017-06-02 20:00] VITALS: BP 148/77; PULSE 68; RESP 18; TEMP 98.6; O2SAT 94
[2017-06-02] MEDS: POTASSIUM CHLORIDE 20 MEQ CONTROLLED RELEASE TAB PO SCH (20:32)
[2017-06-02] MEDS: ATORVASTATIN 80 MG TAB PO SCH (20:32)
[2017-06-02] MEDS: ONDANSETRON HCL 4 MG/2 ML VIAL IV PUSH PRN (22:04)
[2017-06-03] VITALS (7 sets, daily range): BP systolic 98–175; BP diastolic 51–94; PULSE 76–91; RESP 16–19; TEMP 97.5–98.4; O2SAT 94–98
[2017-06-03] MEDS: SODIUM CHLOR 0.9% 1000 ML INJ 1,000 ML IV SCH ×3 (01:02→22:20)
[2017-06-03 07:28] LABS: BICARBONATE 23.6 MEQ/L (21.0-32.0); CALCIUM 8.9 MG/DL (8.5-10.1); CREATININE 2.39 MG/DL (0.60-1.30); MAGNESIUM 2.1 MG/DL (1.5-2.5)
[2017-06-03] MEDS: ONDANSETRON HCL 4 MG/2 ML VIAL IV PUSH PRN (08:00)
[2017-06-03] MEDS: INSULIN DETEMIR 100 UNITS/ML VIAL SQ SCH ×2 (08:01→22:19)
[2017-06-03] MEDS: INSULIN ASPART SUPPLEMENTAL SCALE SQ SCH ×4 (08:02→22:19)
[2017-06-03] MEDS: GABAPENTIN 100 MG CAP PO SCH ×2 (08:03→22:18)
[2017-06-03] MEDS: ESCITALOPRAM OXALATE 10 MG TAB PO SCH (08:04)
[2017-06-03] MEDS: GEMFIBROZIL 600 MG TAB PO SCH (08:04)
[2017-06-03] MEDS: POTASSIUM CHLORIDE 20 MEQ CONTROLLED RELEASE TAB PO SCH ×2 (08:04→22:18)
[2017-06-03] MEDS: ASPIRIN 81 MG CHEW TAB CHEW SCH (08:04)
[2017-06-03] MEDS: ALPRAZolam 1 MG TAB PO PRN (10:45)
--- NOTE | 2017-06-03 11:13 | HHI.PR ---
Subjective Remarks Pt denies any hx of chest pain He is tolerating oral intake He did not sleep well last night and requests something to help him sleep Objective Vitals Vital Signs Date Time Temp Pulse Resp B/P (MAP) Pulse Ox O2 Delivery O2 Flow Rate FiO2 06/03/17 08:46 164/84 (110) 06/03/17 08:22 98.0 78 18 175/85 (115) 96 06/03/17 04:00 97.6 83 18 174/94 (120) 96 06/03/17 00:00 98.1 79 18 98/51 (67) 96 06/02/17 20:00 98.6 68 18 148/77 (100) 94 06/02/17 16:46 98.6 68 20 129/67 (87) 96 06/02/17 12:17 98.4 77 20 123/73 (90) 95 06/03/17 06/03/17 06/04/17 15:00 23:00 07:00 Intake Total 480 ml Balance 480 ml Intake Oral 480 ml Result Diagram: 06/01/17 0756 06/03/17 0550 Other Results Laboratory Tests Test 06/02/17 07:18 06/03/17 05:50 Blood Urea Nitrogen 42 MG/DL 27 MG/DL Creatinine 2.73 MG/DL 2.39 MG/DL Random Glucose 166 MG/DL 165 MG/DL Calcium Level 9.7 MG/DL 8.9 MG/DL Sodium Level 141 MEQ/L 144 MEQ/L Potassium Level 3.1 MEQ/L 3.6 MEQ/L Chloride Level 106 MEQ/L 112 MEQ/L Carbon Dioxide Level 27.2 MEQ/L 23.6 MEQ/L Anion Gap 8 MEQ/L 8 MEQ/L Estimat Glomerular Filtration Rate 23 ML/MIN 27 ML/MIN Free Thyroxine 1.04 NG/DL Magnesium Level 2.1 MG/DL Imaging Last Impressions Chest CT 06/01/17 0000 Signed Impressions: Service Date/Time: Thursday, June 01, 2017 16:07 - CONCLUSION: 1. No acute findings. Mild emphysema. Dense coronary calcifications. No adenopathy. No effusion. Keivn Ochoa MD Gall Bladder Ultrasound 05/31/17 0000 Signed Impressions: Service Date/Time: Wednesday, May 31, 2017 10:21 - CONCLUSION: 1. Study limited by bowel gas. 2. Hepatic steatosis. 3. Questionable cirrhosis. Richard Powell Jr., MD Chest X-Ray 05/31/17 0000 Signed Impressions: Service Date/Time: Wednesday, May 31, 2017 11:54 - CONCLUSION: Normal examination. Richard Powell Jr., MD Abdomen/Pelvis CT 05/31/17 0000 Signed Impressions: Service Date/Time: Wednesday, May 31, 2017 11:42 - CONCLUSION: 1. No acute abnormality to explain the patient's pain. 2. 4.9 x 4.4 cm AAA. 3. Colonic diverticulosis. 4. Hepatic steatosis without appreciable cirrhosis. Richard Powell Jr., MD Objective Remarks General: NAD, AAOx3 Chest: CTA Cardiac: Regular, / NATHALY Abd: +BS, soft ND/NT Ext: No edema A/P Problem List: (1) RAKESH (acute kidney injury) ICD Codes: N17.9 - Acute kidney failure, unspecified Status: Acute Plan: RAKESH, probably related to n/v and dehydration - Slowly improving - Pt has been receiving IVF with normal saline Elevated lipase. - Possible acute pancreatitis but no inflammatory change on CT ?related to hypercalcemia. - Labs have improved - CT Abd/pelvis (05/31/17) --> No acute abnormality to explain the patient's pain. 4.9 x 4.4 cm AAA. Colonic diverticulosis. Hepatic steatosis without appreciable cirrhosis. - Abdominal US (05/31/17) --> Study limited by bowel gas. Hepatic steatosis. Questionable cirrhosis. Hypercalcemia. - Unclear etiology. Pt sees endocrine outpt. SPEP and PTH were unremarkable. Need to exclude underlying malignancy - Lab w/up for hypercalcemia ordered. PTH is suppressed. PTH related peptide is pending - Chest CT --> No acute findings. Mild emphysema. Dense coronary calcifications. No adenopathy. No effusion. DM, type 2 - NovoLog SSI - Levemir 10 units Q12H - His MAJO and Glucophage are on hold until RAKESH resolves - Pt has been tolerating advanced diabetic diet Severe AVS - Pt denies any chest pain - 2D Echo (06/01/17) : - Estimated ejection fraction in the range of 60-65%. - Moderate concentric left ventricular hypertrophy. - Grade 1 diastolic dysfunction - Tbkzw-iz-klef mitral valve regurgitation. - Severe aortic valve stenosis (peak 60, mean 32, RADHA 0.7) - There is trace tricuspid valve regurgitation. - Case discussed between Dr. Gonzales and Dr. Rice and pt will followup with Dr. Gonzales as an outpt (2) Aortic valve stenosis, severe ICD Codes: I35.0 - Nonrheumatic aortic (valve) stenosis Status: Acute (3) Acute pancreatitis ICD Codes: K85.90 - Acute pancreatitis without necrosis or infection, unspecified Status: Acute (4) Hypercalcemia ICD Codes: E83.52 - Hypercalcemia Status: Acute (5) HTN (hypertension) ICD Codes: I10 - Essential (primary) hypertension Status: Chronic (6) AAA (abdominal aortic aneurysm) ICD Codes: I71.4 - Abdominal aortic aneurysm, without rupture Status: Chronic Assessment and Plan Patient examined. Assessment and plan formulated with Peggy Bah PA-C. I agree with the above. raeksh from n/v improving pancreatitis resolved hypercalcemia resolved...w/up pending and will need followed as outpt echo with severe AVS..discussed with dr Gonzales...f/u cp cardiology plan for d/c home tomorrow. Problem Qualifiers (1) Acute pancreatitis: Qualified Codes: K85.80 - Other acute pancreatitis without necrosis or infection Peggy Bah Jun 03, 2017 11:13 Gibran Rice MD Jun 03, 2017 12:13
[2017-06-03] MEDS ORDERED: TEMAZEPAM 15 MG CAP PO PRN (11:15)
[2017-06-03] MEDS ORDERED: cloNIDine HCL 0.1 MG TAB PO PRN (11:30)
[2017-06-03 14:42] LABS: PTH RELATED PEPTIDE 0.4 pmol/L (<2.0)
[2017-06-03] MEDS: PANTOPRAZOLE SODIUM 40 MG VIAL IV PUSH SCH (17:23)
[2017-06-03] MEDS: ATORVASTATIN 80 MG TAB PO SCH (22:18)
[2017-06-04] VITALS: BP 154/67; PULSE 63; RESP 18; TEMP 97.3; O2SAT 96
[2017-06-04 04:21] VITALS: BP 167/79; PULSE 70; RESP 17; TEMP 97.4; O2SAT 98
[2017-06-04] MEDS: ALPRAZolam 1 MG TAB PO PRN ×2 (04:30→11:58)
[2017-06-04] MEDS: INSULIN ASPART SUPPLEMENTAL SCALE SQ SCH ×2 (08:00→11:56)
[2017-06-04 08:32] VITALS: BP 184/96; PULSE 66; RESP 18; TEMP 97.5; O2SAT 98
[2017-06-04 08:53] LABS: BICARBONATE 23.7 MEQ/L (21.0-32.0); CALCIUM 8.6 MG/DL (8.5-10.1); CREATININE 2.13 MG/DL (0.60-1.30)
[2017-06-04] MEDS: INSULIN DETEMIR 100 UNITS/ML VIAL SQ SCH (09:00)
[2017-06-04] MEDS: POTASSIUM CHLORIDE 20 MEQ CONTROLLED RELEASE TAB PO SCH (09:21)
[2017-06-04] MEDS: GEMFIBROZIL 600 MG TAB PO SCH (09:21)
[2017-06-04] MEDS: GABAPENTIN 100 MG CAP PO SCH (09:21)
[2017-06-04] MEDS: ASPIRIN 81 MG CHEW TAB CHEW SCH (09:21)
[2017-06-04] MEDS: ESCITALOPRAM OXALATE 10 MG TAB PO SCH (09:21)
[2017-06-04] MEDS: SODIUM CHLOR 0.9% 1000 ML INJ 1,000 ML IV SCH (09:22)
[2017-06-04 12:57] VITALS: BP 118/79; PULSE 66; RESP 18; TEMP 98.4; O2SAT 96
[2017-06-04] MEDS ORDERED: AMLO10 PO (12:57)
--- NOTE | 2017-06-04 12:57 | HHI.DCPOC ---
Discharge Care Plan Diagnosis: (1) Aortic valve stenosis, severe (2) RAKESH (acute kidney injury) (3) Hypercalcemia (4) Acute pancreatitis (5) AAA (abdominal aortic aneurysm) (6) HTN (hypertension) Goals to Promote Your Health * To prevent worsening of your condition and complications * To maintain your health at the optimal level Directions to Meet Your Goals Take your medications as prescribed Follow your dietary instruction Follow activity as directed Keep your appointments as scheduled Take your immunizations and boosters as scheduled If your symptoms worsen call your PCP, if no PCP go to Urgent Care Center or Emergency Room Smoking is Dangerous to Your Health. Avoid second hand smoke Call the 24-hour hour crisis hotline for domestic abuse at Gibran Rice MD Jun 04, 2017 12:57
--- NOTE | 2017-06-04 13:06 | HHI.DS ---
Discharge Summary Admission Date May 31, 2017 at 11:50 Discharge Date: Jun 04, 2017 Admitting Diagnosis rakesh/pancreatitis (1) RAKESH (acute kidney injury) Diagnosis: Principal ICD Codes: N17.9 - Acute kidney failure, unspecified Status: Acute (2) Aortic valve stenosis, severe Diagnosis: Principal ICD Codes: I35.0 - Nonrheumatic aortic (valve) stenosis Status: Acute (3) Acute pancreatitis Diagnosis: Principal ICD Codes: K85.90 - Acute pancreatitis without necrosis or infection, unspecified Status: Acute (4) Hypercalcemia Diagnosis: Principal ICD Codes: E83.52 - Hypercalcemia Status: Acute (5) HTN (hypertension) Diagnosis: Secondary ICD Codes: I10 - Essential (primary) hypertension Status: Chronic (6) AAA (abdominal aortic aneurysm) Diagnosis: Secondary ICD Codes: I71.4 - Abdominal aortic aneurysm, without rupture Status: Chronic Brief History Pt is dm2, htn, hypercalcemia, who presents with n/v poor po intake for past 3 weeks. He and say persistent nausea and unable to hold down any food. some upper abdomen lower cp but no radiation to back. no diarrhia. has had some chills but no fever. No new medications. Brought to ED and found to have rakesh and possible pancreatitis. CBC/BMP: 06/01/17 0756 06/04/17 0740 Significant Findings Laboratory Tests Test 06/02/17 07:18 06/03/17 05:50 06/04/17 07:40 Blood Urea Nitrogen 42 MG/DL (7-18) 27 MG/DL (7-18) 20 MG/DL (7-18) Creatinine 2.73 MG/DL (0.60-1.30) 2.39 MG/DL (0.60-1.30) 2.13 MG/DL (0.60-1.30) Random Glucose 166 MG/DL (74-106) 165 MG/DL (74-106) 136 MG/DL (74-106) Potassium Level 3.1 MEQ/L (3.5-5.1) Estimat Glomerular Filtration Rate 23 ML/MIN (>89) 27 ML/MIN (>89) 31 ML/MIN (>89) Chloride Level 112 MEQ/L (98-107) 113 MEQ/L (98-107) Hospital Course (1) RAKESH (acute kidney injury) 1. RAKESH. probably related to n/v and dehydration..improving 2. elevated lipase. possible acute pancreatitis but no inlammatory change on CT ?related to hypercalcemia. 3. hypercalcemia. unclear etiology. pt sees endocrine outpt. spep and pth were unremarkable. exclude underlying malignancy here the intace pth is very low at 2.5. the pth related peptide was not elevated. ct c/a/p showed no obvious solid tumors. vit d levels are actually very low and not felt to be causing the low pth. he was taking ca supplement at one point but has stopped. doesn't appear to be thyrotoxic 4. dm 2 5. severe AVS with abnormal appearing ekg....no cp. discussed with pcp and dr Ding [facility] cardiology pt feels well and wants d/c home today. hold metformin and lisinipril due to elevated cr still at 2 and not back to baseline. give norvasc for now to control bp and fu pcp pcp will refer pt back to endocrine for ca eval. spoke to dr Ding. will not do stress test today. will have pt see him on Wed. next week and may also be in consideration for [facility] given the AVS. Pt Condition on Discharge: Stable Discharge Disposition: Discharge Home Discharge Instructions DIET: Follow Instructions for: Diabetic Diet Additional Diet Instructions: drink plenty of fluids. Dr Carmelina Bal will recheck your kidney function on f/u. Activities you can perform: Regular-No Restrictions Follow up Referrals: Cardiology - 06/09/17 with judi ding PCP Follow-up - 06/07/17 with carmelina bal. New Medications: Amlodipine (Norvasc) 10 Mg Tab 10 MG PO DAILY for Blood Pressure Management, #30 TAB 0 Refills Continued Medications: Albiglutide 4-Pack Inj (Tanzeum 4-Pack Inj) 50 Mg Pfpen 50 MG SQ Q7D, #4 PEN Alprazolam (Alprazolam) 1 Mg Tab 1 MG PO BID PRN for ANXIETY, TAB 0 Refills Ascorbic Acid (Vitamin C) 250 Mg Chew 500 MG CHEW DAILY for Nutritional Supplement, #30 TAB 0 Refills Aspirin (Aspirin) 325 Mg Tab 81 MG PO DAILY, #30 TAB 0 Refills Atorvastatin (Lipitor) 20 Mg Tab 80 MG PO HS for Cholesterol Management, #30 TAB [address] (Bisacodyl EC) 5 Mg Tabec 5 MG PO DAILY PRN for CONSTIPATION, TAB 0 Refills Clonidine (Clonidine) 0.1 Mg Tab 0.1 MG PO PRN for Blood Pressure Management, #60 TAB 0 Refills Escitalopram (Escitalopram) 10 Mg Tab 10 MG PO DAILY, #30 TAB 0 Refills Gabapentin (Gabapentin) 100 Mg Cap 100 MG PO BID, #60 CAP 0 Refills Gemfibrozil (Gemfibrozil) 600 Mg Tab 600 MG PO DAILY, #60 TAB 0 Refills Take 30 minutes prior to breakfast and dinner. Insulin Degludec Inj (Tresiba Flextouch Pen Inj) 300 unit/3 ML Pen 80 UNITS SQ DAILY for Blood Sugar Management, #15 ML 0 Refills Tramadol (Tramadol) 50 Mg Tab 50 MG PO Q6H PRN for PAIN, TAB 0 Refills Discontinued Medications: Lisinopril (Lisinopril) 20 Mg Tab 20 MG PO DAILY, #30 TAB 0 Refills Metformin (Metformin) 1,000 Mg Tab 1000 MG PO BIDPC for Blood Sugar Management, #60 TAB 0 Refills With meals Gibran Rice MD Jun 04, 2017 13:06
--- NOTE | 2017-06-05 13:31 | EKG ---
Date Performed: 06/04/2017 Time Performed: 13:29:05 PTAGE: 67 years EKG: Sinus rhythm INTRAVENTRICULAR CONDUCTION DELAY Since the prior tracing, there has been no significant change ABNO RMAL ECG PREVIOUS TRACING : 06/01/2017 05.42 DOCTOR: Jethro Angela Interpretating Date/Time 06/05/2017 13:29:31
== END 2017-06-04 18:45 | disposition home or self-care (01) | DRG 682 ==
LOC: NEPE 09:09 → NEDA 11:50 → N05B 16:03
PROVIDERS: ADMIT Hospitalist; ATTEND Hospitalist
DX: N17.9 Acute kidney failure, unspecified (principal); K85.90 Acute pancreatitis without necrosis or infection, unspecified; K76.0 Fatty (change of) liver, not elsewhere classified; I10 Essential (primary) hypertension; E83.52 Hypercalcemia; E86.0 Dehydration; E11.9 Type 2 diabetes mellitus without complications; Z79.84 Long term (current) use of oral hypoglycemic drugs; G47.33 Obstructive sleep apnea (adult) (pediatric); E27.9 Disorder of adrenal gland, unspecified; E78.5 Hyperlipidemia, unspecified; F32.9 Major depressive disorder, single episode, unspecified; E55.9 Vitamin D deficiency, unspecified; Z79.82 Long term (current) use of aspirin; K21.9 Gastro-esophageal reflux disease without esophagitis; I35.0 Nonrheumatic aortic (valve) stenosis; I71.4 Abdominal aortic aneurysm, without rupture; N52.9 Male erectile dysfunction, unspecified; Z23 Encounter for immunization; Z86.010 Personal history of colon polyps; Z85.038 Personal history of other malignant neoplasm of large intestine
CPT/HCPCS: 71045; 71250; 74176; 76705; 80048; 80053; 80061; 81001; 82306; 82397; 82550; 82652; 82948; 83605; 83690; 83735; 83970; 84439; 84443; 84484; 85025; 87040; 90686; 93005; 93306; 96361; 96374; C9113; J1815; J2405; J7030; Q2038